=== PATIENT | male | born 1935 | race Caucasian/White ===

== ENCOUNTER 2016-08-26 20:29 | Inpatient (IN) | payer MEDICARE, BC ==
[~2016-08-26] VITALS: Ht 170.2 cm; Wt 94.5 kg
[~2016-08-26 20:29] MED LIST: AMLOPIDINE; ASPIR-LOW81 MG PO; ASPIRIN 81M81 MG/TA2 PO; CEFTIN 250250 MG/TAB PO; COLACE 100100 MG/CAP PO; DAILY MULTIPLE1 T19 PO; DEPOLUPRON; EFFIENT10 MG PO; FERRO-TIME325 MG PO; FISH OIL CONC1000 MG PO; FLAGYL500 MG PO; GLUCOSAMINE/CHONDROI PO; HALDOL .5M0.5 MG/TAB; HYDROCHLOR50 MG PO; HYDRODIURIL50 MG PO; HYGROTON25 MG PO; IRON TABLETS325 MG PO; KLOR-CON 1010 MEQ PO; KLOR-CON M1010 MEQ PO; LASIX 20MG TABL20 MG PO; LASIX 40MG TABL40 MG; LASIX 40MG TABL40 MG PO; LIPITOR 10MG10 MG PO; LIPITOR 80MG80 MG PO; LOPRESSOR 550 MG/TAB PO; MIRALAX PA17 GM/Dose PO; MULTI VITAMINS1 TAB PO; NEXIUM 40MG40 MG PO; NEXIUM40 MG PO; NITROSTAT0.4 MG/TAB SL; NORCO 325 MG-51 TAB PO; PACERONE200 MG; PLAVIX 75MG TAB75 MG PO; PRINIVIL40 MG PO; PROBIOTIC-MAJOR PO; TICLOPIDINE HC250 MG PO; TOPROL XL50 MG PO; TYLENOL 500MG500 MG PO; ULTRAM 50MG TAB50 MG PO; VANCOCIN H125 MG/CAP PO; VITAMIN D32000 I1 PO; VOLTAREN 75 DR75 MG PO; VYTORIN; ZANAFLEX CAPSULE4 MG PO; ZANTAC 300300 MG PO; ZEBETA 5MG5 MG PO; ZEBETA10 MG; ZESTRIL 5MG5 MG PO; [UNRECOGNIZED DRUG - OTHER]
[2016-08-26 20:44] LABS: BASO # 0.1 (0.0-0.2); BASO % 0.8 % (0.0-2.0); EOS # 0.6 (0.0-0.7); EOS % 8.8 % (0-4.0); GRAN # 3.6 (1.4-6.5); GRAN % 54.2 % (42.2-75.2); HEMATOCRIT 39.4 % (42.0-52.0); HEMOGLOBIN 12.8 g/dl (13.5-18.0); LYMPH # 1.6 (1.2-3.4); LYMPH % 23.9 % (20.0-51.0); MEAN CELL VOLUME 91 fl (80.0-100.0); MEAN CORPUSCULAR HEMOGLOBIN 30 pg (27.0-31.0); MEAN CORPUSCULAR HGB CONC 33 g/dl (33.0-37.0); MEAN PLATELET VOLUME 10.1 fl (7.4-10.4); MONO # 0.8 (0.1-0.6); PLATELET COUNT 219 K/mm3 (130-400); RED BLOOD COUNT 4.31 M/mm3 (4.20-5.60); REDCELL DISTRIBUTION WIDTH-CV 13.1 % (11.5-14.5); WHITE BLOOD COUNT 6.6 K/mm3 (4.8-10.8)
[2016-08-26 20:47] LABS: INR 1.1 (0.8-3.0); PROTHROMBIN TIME 11.9 SECONDS (9.7-12.8)
[2016-08-26 20:50] LABS: PARTIAL THROMBOPLASTIN TIME 31.3 SECONDS (26.0-37.0)
[2016-08-26 20:55] LABS: ADJUSTED CALCIUM 9.3 mg/dL (8.4-10.2); BILIRUBIN,TOTAL 0.6 mg/dL (0.0-1.0); CALCIUM 9.3 mg/dL (8.4-10.2); CREATININE, serum 1.24 mg/dL (0.66-1.25); POTASSIUM 4.4 mmol/L (3.4-5.0); TOTAL PROTEIN 7.5 gm/dL (6.4-8.2)
[2016-08-26 21:05] LABS: TROPONIN-I 0.012 ng/mL (0.000-0.034)
[2016-08-27] VITALS (319 sets, daily range): BP systolic 141–177; BP diastolic 50–90; PULSE 47–80; TEMP 97.1–98.6; O2SAT 86–100
[2016-08-27 05:51] LABS: CALCIUM 9.1 mg/dL (8.4-10.2); CREATININE, serum 1.21 mg/dL (0.66-1.25); HEMATOCRIT 37.1 % (42.0-52.0); HEMOGLOBIN 12.2 g/dl (13.5-18.0); MEAN CELL VOLUME 92 fl (80.0-100.0); MEAN CORPUSCULAR HEMOGLOBIN 30 pg (27.0-31.0); MEAN CORPUSCULAR HGB CONC 33 g/dl (33.0-37.0); MEAN PLATELET VOLUME 10.3 fl (7.4-10.4); PLATELET COUNT 182 K/mm3 (130-400); POTASSIUM 3.9 mmol/L (3.4-5.0); RED BLOOD COUNT 4.04 M/mm3 (4.20-5.60); REDCELL DISTRIBUTION WIDTH-CV 13.1 % (11.5-14.5)
[2016-08-27 06:01] LABS: TROPONIN-I 0.016 ng/mL (0.000-0.034)
[2016-08-27 06:20] LABS: THYROID STIMULATING HORMONE 2.46 uIU/mL (0.465-4.680)
[2016-08-28 04:04] VITALS: BP 115/61; PULSE 72; TEMP 98.6
[2016-08-28 07:25] LABS: CALCIUM 9.2 mg/dL (8.4-10.2); CREATININE, serum 1.17 mg/dL (0.66-1.25); POTASSIUM 3.9 mmol/L (3.4-5.0)
[2016-08-28 07:28] LABS: BASO % 0.5 % (0.0-2.0); EOS # 0.5 (0.0-0.7); EOS % 7.9 % (0-4.0); GRAN # 3.8 (1.4-6.5); GRAN % 60.8 % (42.2-75.2); HEMOGLOBIN 11.7 g/dl (13.5-18.0); LYMPH # 1.1 (1.2-3.4); LYMPH % 17.9 % (20.0-51.0); MEAN CELL VOLUME 92 fl (80.0-100.0); MEAN CORPUSCULAR HEMOGLOBIN 30 pg (27.0-31.0); MEAN CORPUSCULAR HGB CONC 33 g/dl (33.0-37.0); MEAN PLATELET VOLUME 10.5 fl (7.4-10.4); MONO # 0.8 (0.1-0.6); MONO % 12.4 % (1.7-9.3); PLATELET COUNT 208 K/mm3 (130-400); RED BLOOD COUNT 3.91 M/mm3 (4.20-5.60); REDCELL DISTRIBUTION WIDTH-CV 13.2 % (11.5-14.5); WHITE BLOOD COUNT 6.3 K/mm3 (4.8-10.8)
[2016-08-28 08:27] VITALS: BP 129/60; PULSE 75; TEMP 98.3
[2016-08-28] MEDS ORDERED: IMDUR 60MG60 MG/TAB PO (09:48)
[2016-08-28] MEDS ORDERED: ZESTRIL 10MG10 MG PO (09:49)
[2016-08-29] MEDS ORDERED: ARICEPT 5MG PO (09:48)
== END 2016-08-28 11:10 | disposition home or self-care (01) | DRG 313 ==
LOC: COL.ER 20:29 → ICU 22:00 → MEDICAL 08-27 14:25
PROVIDERS: Family Medicine; Internal Medicine
DX: R07.89 Other chest pain (principal); I44.2 Atrioventricular block, complete; M06.9 Rheumatoid arthritis, unspecified; E78.5 Hyperlipidemia, unspecified; K21.9 Gastro-esophageal reflux disease without esophagitis; I10 Essential (primary) hypertension; R00.1 Bradycardia, unspecified; D64.9 Anemia, unspecified; Z87.891 Personal history of nicotine dependence; Z95.1 Presence of aortocoronary bypass graft
CPT/HCPCS: 99232-AI; 99239; C9113; J1650

== ENCOUNTER → 2016-08-29 | Outpatient (CLI) | payer MEDICARE, BC ==
[~2016-08-29] VITALS: Ht 170.2 cm; Wt 97.1 kg
[~2016-08-29] MED LIST changes: +ARICEPT 5MG PO; +IMDUR 60MG60 MG/TAB PO; +ZESTRIL 10MG10 MG PO
[2016-08-29 09:37] VITALS: BP 163/81; PULSE 83
[2016-08-29 11:17] VITALS: BP 168/70; PULSE 81
[2016-08-29 11:18] VITALS: BP 148/74; PULSE 74
[2016-08-29 11:20] VITALS: BP 158/90; PULSE 107
[2016-08-29 11:21] VITALS: BP 174/94; PULSE 101
== END ==
LOC: COL.CARD 09:11
DX: R07.89 Other chest pain (principal); R94.39 Abnormal result of other cardiovascular function study
CPT/HCPCS: A9502; J2785

== ENCOUNTER → 2017-05-07 | Outpatient (CLI) | payer MEDICARE, BC | LOC: COL.RAD 15:50 | DX: M79.605 Pain in left leg (principal); R22.42 Localized swelling, mass and lump, left lower limb ==

== ENCOUNTER → 2018-08-06 | Outpatient (CLI) | payer MEDICARE, BC | LOC: COL.RAD 09:35 | DX: C61 Malignant neoplasm of prostate (principal); M51.36 Other intervertebral disc degeneration, lumbar region; M48.061 Spinal stenosis, lumbar region without neurogenic claudication; Z96.641 Presence of right artificial hip joint; I51.7 Cardiomegaly; R09.89 Other specified symptoms and signs involving the circulatory and respiratory systems | CPT/HCPCS: A9503; Q9967 ==

== ENCOUNTER 2019-02-08 12:59 | Emergency (ER) | payer MEDICARE, BC ==
[~2019-02-08] VITALS: Ht 165.1 cm; Wt 90.9 kg
[2019-02-08 13:04] VITALS: TEMP 97.9
[2019-02-08 13:35] LABS: BASO # 0.1 (0.0-0.2); BASO % 0.9 % (0.0-2.0); EOS # 0.3 (0.0-0.7); GRAN # 3.5 (1.4-6.5); GRAN % 65.3 % (42.2-75.2); HEMATOCRIT 39.5 % (42.0-52.0); HEMOGLOBIN 12.7 g/dl (13.5-18.0); LYMPH # 0.9 (1.2-3.4); LYMPH % 15.9 % (20.0-51.0); MEAN CELL VOLUME 95 fl (80.0-100.0); MEAN CORPUSCULAR HEMOGLOBIN 31 pg (27.0-31.0); MEAN CORPUSCULAR HGB CONC 32 g/dl (33.0-37.0); MONO # 0.6 (0.1-0.6); MONO % 11.2 % (1.7-9.3); PLATELET COUNT 181 K/mm3 (130-400); RED BLOOD COUNT 4.17 M/mm3 (4.20-5.60); REDCELL DISTRIBUTION WIDTH-CV 13.2 % (11.5-14.5)
[2019-02-08 13:40] LABS: ALBUMIN 3.7 gm/dL (3.5-5.0); BILIRUBIN,TOTAL 0.5 mg/dL (0.0-1.0); CALCIUM 8.9 mg/dL (8.4-10.2); CREATININE, serum 1.13 (0.66-1.25); MAGNESIUM 2.1 mg/dL (1.6-2.3); POTASSIUM 4.2 mmol/L (3.4-5.0); TOTAL PROTEIN 6.8 gm/dL (6.4-8.2)
[2019-02-08] MEDS ORDERED: ATIVAN 0.50.5 MG/TAB PO (14:46)
[2019-02-08 14:58] VITALS: BP 108/60; PULSE 64
== END 2019-02-08 15:25 | disposition home or self-care (01) ==
LOC: COL.ER 12:59
PROVIDERS: Emergency Medicine
DX: G51.39 Clonic hemifacial spasm, unspecified (principal); Z79.82 Long term (current) use of aspirin; Z79.02 Long term (current) use of antithrombotics/antiplatelets
CPT/HCPCS: J2060; J7040

== ENCOUNTER → 2021-03-07 | Outpatient (CLI) | payer MEDICARE, BC ==
[~2021-03-07] MED LIST changes: +ATIVAN 0.50.5 MG/TAB PO
== END ==
LOC: COL.RAD 09:19
DX: C61 Malignant neoplasm of prostate (principal); M48.061 Spinal stenosis, lumbar region without neurogenic claudication; M51.36 Other intervertebral disc degeneration, lumbar region; I51.7 Cardiomegaly; R09.89 Other specified symptoms and signs involving the circulatory and respiratory systems; Z96.641 Presence of right artificial hip joint
CPT/HCPCS: A9503; Q9967

== ENCOUNTER 2021-04-28 11:06 | Outpatient (RCR) | payer MEDICARE, BC | END 2021-07-27 | disposition home or self-care (01) | LOC: WSST | DX: R13.13 Dysphagia, pharyngeal phase (principal) ==

== ENCOUNTER → 2021-05-05 | Outpatient (CLI) | payer MEDICARE, BC | LOC: COL.RAD 14:43 | DX: R13.10 Dysphagia, unspecified (principal) ==

== ENCOUNTER 2021-12-07 05:22 | Observation (INO) | payer MEDICARE, BC ==
[~2021-12-07] VITALS: Ht 157.5 cm; Wt 97.7 kg
[2021-12-07 05:49] LABS: BASO % 0.3 % (0.0-2.0); EOS % 0.5 % (0.0-4.0); GRAN # 4.6 K/mm3 (1.4-6.5); GRAN % 76.2 % (42.2-75.2); HEMATOCRIT 38.8 % (42.0-52.0); LYMPH # 0.8 K/mm3 (1.2-3.4); LYMPH % 12.3 % (20.0-51.0); MEAN CELL VOLUME 95 fl (80.0-100.0); MEAN CORPUSCULAR HEMOGLOBIN 32 pg (27-31); MEAN CORPUSCULAR HGB CONC 34 g/dl (33.0-37.0); MEAN PLATELET VOLUME 10.9 fl (7.4-10.4); MONO # 0.6 K/mm3 (0.1-0.6); MONO % 9.7 % (1.7-9.3); PLATELET COUNT 175 K/mm3 (130-400); RED BLOOD COUNT 4.09 M/mm3 (4.20-5.60); REDCELL DISTRIBUTION WIDTH-CV 13.1 % (11.5-14.5)
[2021-12-07 06:14] LABS: ALBUMIN 3.9 gm/dL (3.4-4.8); CALCIUM 8.8 mg/dL (8.4-10.2); CREATININE, serum 1.31 mg/dL (0.72-1.25); POTASSIUM 4.5 mmol/L (3.5-4.5); TOTAL PROTEIN 6.1 gm/dL (6.2-8.1)
[2021-12-07 06:22] LABS: TROPONIN-I 0.086 ng/mL (0.00-0.033)
--- NOTE | 2021-12-07 12:30 | NUR ---
Zahra informed of patient's elevated troponin.
[2021-12-07] MEDS ORDERED: ZYTIGA500 MG PO (12:42)
[2021-12-07] MEDS ORDERED: PREDNISONE 5MG5 MG PO (12:44)
[2021-12-07 12:51] VITALS: BP 140/63; BP 140/70; PULSE 78; TEMP 97.5; TEMP 98.7
[2021-12-07 14:50] VITALS: BP 140/70; PULSE 78
--- NOTE | 2021-12-07 14:52 | NUR ---
Received report that patient is taking chemotherapy for prostate cancer. Patient taking Abiraterone (Zytiga) daily. Chemo precautions need to be followed for patient feces for 4 days following administration. Notified care team and place signage outside patient room.
[2021-12-07] MEDS ORDERED: PROTONIX 40MG T40 MG PO (15:06)
[2021-12-07] MEDS ORDERED: VITAMIN D 400400 IU (15:12)
[2021-12-07] MEDS ORDERED: CALCIUM (15:13)
[2021-12-07] MEDS ORDERED: ZANAFLEX CAPSULE2 MG PO (15:14)
[2021-12-07 15:56] VITALS: BP 147/70; PULSE 59; TEMP 98.1
--- NOTE | 2021-12-07 18:00 | NUR ---
Patient admitted from ED to room 311 for NSTEMI. Allergies, medications, and pharmacy reviewed. Admission paperwork completed. Patient on chemo percautions. Patient denies any pain, discomfort, SOA, or further needs at this time. Patient on RA. VSS. Patient A&O. Fall precautions in place.
[2021-12-07 20:48] VITALS: BP 149/63; PULSE 59; TEMP 98.1
[2021-12-08] VITALS (9 sets, daily range): BP systolic 124–197; BP diastolic 68–105; PULSE 20–95; TEMP 97.5–97.9
--- NOTE | 2021-12-08 05:14 | NUR ---
PATIENT RESTED QUIETLY IN BED THROUGHOUT THE NIGHT. PATIENT DENIED PAIN OR NAUSEA. PATIENT HAS BEEN NPO SINCE 0000. NO NEW ISSUES NOTED OR REPORTED BY PATIENT.
[2021-12-08 06:18] LABS: BASO % 0.5 % (0.0-2.0); EOS # 0.1 K/mm3 (0.0-0.7); EOS % 1.7 % (0.0-4.0); GRAN # 4.9 K/mm3 (1.4-6.5); GRAN % 75.5 % (42.2-75.2); HEMATOCRIT 38.7 % (42.0-52.0); HEMOGLOBIN 12.9 g/dl (13.5-18.0); LYMPH # 0.6 K/mm3 (1.2-3.4); LYMPH % 9.5 % (20.0-51.0); MEAN CELL VOLUME 95 fl (80.0-100.0); MEAN CORPUSCULAR HEMOGLOBIN 32 pg (27-31); MEAN CORPUSCULAR HGB CONC 33 g/dl (33.0-37.0); MEAN PLATELET VOLUME 11.2 fl (7.4-10.4); MONO # 0.8 K/mm3 (0.1-0.6); MONO % 11.7 % (1.7-9.3); PLATELET COUNT 177 K/mm3 (130-400); RED BLOOD COUNT 4.07 M/mm3 (4.20-5.60); REDCELL DISTRIBUTION WIDTH-CV 13.1 % (11.5-14.5)
[2021-12-08 06:45] LABS: ALBUMIN 3.3 gm/dL (3.4-4.8); CALCIUM 8.6 mg/dL (8.4-10.2); CREATININE, serum 1.26 mg/dL (0.72-1.25); MAGNESIUM 2.1 mg/dL (1.6-2.6); PHOSPHOROUS 2.7 mg/dL (2.3-4.7); POTASSIUM 4.1 mmol/L (3.5-4.5)
--- NOTE | 2021-12-08 07:57 | NUR ---
PATIENT RESTING COMFORTABLY IN BED ASLEEP. DID NOT DISTURB.
--- NOTE | 2021-12-08 09:24 | NUR ---
Initial visit; Patient preparing for test, House Registry Rn offered God's blessings and wished him well.
--- NOTE | 2021-12-08 09:41 | NUR ---
CORNELIO met with the patient's , Marina (ph#[phone]) and their daughter, Amy, to discuss discharge plan. The patient was out of the room for a test. The patient lives in [place] with his . Marina reports that the patient needs some assistance with getting in and out of the bath and that he has a walker. The patient's PCP is Dr. Ren Ortega and he receives his medications from [facility]. The patient does not have a DPOA-HC in EMR, but Marina states she believes the patient has one completed and that it designates her. Marina reports that the plan is for the patient to return back home with her upon discharge. CORNELIO discussed home health services. Marina and Amy report that they would be interested in getting home health services for the patient. SW provided them with Medicare.gov's list of home health agencies that serve [place]. Marina and Amy would like some time to look over the list. SW to continue to follow. *Discharge plan: home with and home health*
[2021-12-08] MEDS ORDERED: FLOMAX 0.40.4 MG/CAP PO (10:54)
[2021-12-08] MEDS ORDERED: PROZAC 20MG20 MG PO (10:55)
[2021-12-08] MEDS ORDERED: NAMENDA5 MG PO (10:55)
--- NOTE | 2021-12-08 12:15 | NUR ---
PT VOMITING, ZOFRAN ORDER OBTAINED FROM PAT BLUE, SUSPECTED THAT NORCO HAD ALSO BEEN VOMITED UP, CANNOT GIVE NORCO OTHERWISE EXCEEDING ACETAMINOPHEN 24HR LIMIT, PAT ALSO NOTIFIED OF THIS AND WILLIAM ORDERED AND GIVEN INSTEAD. PT TAKEN DOWN FOR LP.
[2021-12-08] MEDS ORDERED: PLAVIX 75MG TAB75 MG PO (13:07)
[2021-12-08] MEDS ORDERED: ASPIRIN 81M81 MG/TA2 PO (13:07)
[2021-12-08] MEDS ORDERED: NORVASC2.5 MG PO (13:08)
[2021-12-08] MEDS ORDERED: NITROSTAT0.4 MG/TAB SL (14:15)
--- NOTE | 2021-12-08 14:15 | NUR ---
The clinical team is ready to discharge the patient today. CORNELIO met with the patient, his , and daughter to follow up on home health preference. The patient's and daughter chose [facility]. CORNELIO contacted and faxed a referral to Nichol at [facility]. Nichol states that they are able to accept the patient. The patient is to discharge back home with his today, 12/08, with home health services for mcfp/PT/OT from [facility]. CORNELIO faxed orders to Nichol at [facility]. No additional needs at this time.
--- NOTE | 2021-12-08 14:56 | NUR ---
PT ESCORTED OUT VIA WHEELCHAIR. EDUCATED PT AND PT AND DAUGHTER ON DISCHARGE PAPERWORK, IV REMOVED, TELE REMOVED.
[2021-12-08] MEDS ORDERED: ZESTRIL 10MG10 MG PO (20:49)
== END 2021-12-08 14:50 | disposition home or self-care (01) ==
LOC: COL.ER 05:22 → MEDICAL 06:39
PROVIDERS: Personal Emergency Response Attendant; ADMIT Internal Medicine
DX: R07.89 Other chest pain (principal); R77.8 Other specified abnormalities of plasma proteins; I25.10 Atherosclerotic heart disease of native coronary artery without angina pectoris; I50.20 Unspecified systolic (congestive) heart failure; N18.9 Chronic kidney disease, unspecified; I12.9 Hypertensive chronic kidney disease with stage 1 through stage 4 chronic kidney disease, or unspecified chronic kidney disease; E78.5 Hyperlipidemia, unspecified; K21.9 Gastro-esophageal reflux disease without esophagitis; N40.0 Benign prostatic hyperplasia without lower urinary tract symptoms; M06.9 Rheumatoid arthritis, unspecified; C61 Malignant neoplasm of prostate; F32.A Depression, unspecified; F03.90 Unspecified dementia, unspecified severity, without behavioral disturbance, psychotic disturbance, mood disturbance, and anxiety; Z95.1 Presence of aortocoronary bypass graft; Z79.82 Long term (current) use of aspirin; Z79.899 Other long term (current) drug therapy; Z87.891 Personal history of nicotine dependence
CPT/HCPCS: 99239; A9500; G0378; J2785; J7512

== ENCOUNTER 2022-02-16 10:05 | Inpatient (IN) | payer MEDICARE, BC ==
[~2022-02-16] VITALS: Ht 170.2 cm; Wt 86.3 kg
[~2022-02-16 10:05] MED LIST changes: +CALCIUM; +FLOMAX 0.40.4 MG/CAP PO; +NAMENDA5 MG PO; +NORVASC2.5 MG PO; +PREDNISONE 5MG5 MG PO; +PROTONIX 40MG T40 MG PO; +PROZAC 20MG20 MG PO; +VITAMIN D 400400 IU; +ZANAFLEX CAPSULE2 MG PO; +ZYTIGA500 MG PO
[2022-02-16 11:35] LABS: BASO % 0.3 % (0.0-2.0); EOS # 0.2 K/mm3 (0.0-0.7); EOS % 2.9 % (0.0-4.0); GRAN # 4.6 K/mm3 (1.4-6.5); GRAN % 75.8 % (42.2-75.2); HEMOGLOBIN 11.8 g/dl (13.5-18.0); LYMPH # 0.5 K/mm3 (1.2-3.4); LYMPH % 7.4 % (20.0-51.0); MEAN CELL VOLUME 97 fl (80.0-100.0); MEAN CORPUSCULAR HEMOGLOBIN 32 pg (27-31); MEAN CORPUSCULAR HGB CONC 33 g/dl (33.0-37.0); MEAN PLATELET VOLUME 10.8 fl (7.4-10.4); MONO # 0.8 K/mm3 (0.1-0.6); MONO % 12.3 % (1.7-9.3); PLATELET COUNT 196 K/mm3 (130-400); REDCELL DISTRIBUTION WIDTH-CV 13.1 % (11.5-14.5)
[2022-02-16 11:39] LABS: HEMATOCRIT 35.9 % (42.0-52.0)
[2022-02-16 11:49] LABS: INR 1.1 (0.8-3.0); PROTHROMBIN TIME 12.9 SECONDS (9.7-12.8)
[2022-02-16 12:22] LABS: CALCIUM 9.5 mg/dL (8.4-10.2); CREATININE, serum 1.34 mg/dL (0.72-1.25); POTASSIUM 3.1 mmol/L (3.5-4.5); TOTAL PROTEIN 5.9 gm/dL (6.2-8.1)
[2022-02-16 12:31] LABS: TROPONIN-I 0.171 ng/mL (0.00-0.033)
[2022-02-16 20:15] VITALS: BP 170/78; PULSE 86; TEMP 98.2
[2022-02-16 23:55] VITALS: BP 158/60; PULSE 62; TEMP 97.8
[2022-02-17 04:00] VITALS: BP 140/88; PULSE 68; TEMP 98.1
[2022-02-17 06:18] LABS: BASO % 0.3 % (0.0-2.0); EOS % 0.5 % (0.0-4.0); GRAN # 4.9 K/mm3 (1.4-6.5); GRAN % 82.3 % (42.2-75.2); HEMOGLOBIN 10.9 g/dl (13.5-18.0); LYMPH # 0.4 K/mm3 (1.2-3.4); LYMPH % 6.1 % (20.0-51.0); MEAN CELL VOLUME 96 fl (80.0-100.0); MEAN CORPUSCULAR HEMOGLOBIN 32 pg (27-31); MEAN CORPUSCULAR HGB CONC 33 g/dl (33.0-37.0); MEAN PLATELET VOLUME 10.7 fl (7.4-10.4); MONO # 0.6 K/mm3 (0.1-0.6); PLATELET COUNT 192 K/mm3 (130-400); RED BLOOD COUNT 3.41 M/mm3 (4.20-5.60); REDCELL DISTRIBUTION WIDTH-CV 13.2 % (11.5-14.5)
[2022-02-17 06:34] LABS: HEMATOCRIT 32.6 % (42.0-52.0)
[2022-02-17 06:45] LABS: CALCIUM 8.9 mg/dL (8.4-10.2); CREATININE, serum 1.04 mg/dL (0.72-1.25); MAGNESIUM 1.9 mg/dL (1.6-2.6); POTASSIUM 3.5 mmol/L (3.5-4.5)
[2022-02-17 08:22] VITALS: BP 140/70; PULSE 70; TEMP 97.8
[2022-02-17 14:18] VITALS: BP 135/80; PULSE 62
[2022-02-17 17:00] VITALS: BP 157/80
[2022-02-17 20:17] VITALS: BP 142/78; PULSE 85; TEMP 97.8
[2022-02-18 00:28] VITALS: BP 150/74; PULSE 77; TEMP 97.8
[2022-02-18 12:00] VITALS: BP 180/100; PULSE 101; TEMP 99.5
[2022-02-18 13:56] VITALS: BP 150/95
[2022-02-18 16:00] VITALS: BP 150/95; PULSE 97; TEMP 98.3
[2022-02-18 20:39] VITALS: BP 139/76; PULSE 86; TEMP 98.3
[2022-02-18 23:27] VITALS: BP 140/86; PULSE 90; TEMP 98.2
[2022-02-19] VITALS (7 sets, daily range): BP systolic 93–155; BP diastolic 60–88; PULSE 82–108; TEMP 97.8–99
[2022-02-19 06:18] LABS: BASO % 0.9 % (0.0-2.0); EOS # 0.2 K/mm3 (0.0-0.7); EOS % 3.7 % (0.0-4.0); GRAN # 3.1 K/mm3 (1.4-6.5); GRAN % 67.8 % (42.2-75.2); HEMOGLOBIN 11.2 g/dl (13.5-18.0); LYMPH # 0.4 K/mm3 (1.2-3.4); LYMPH % 9.3 % (20.0-51.0); MEAN CELL VOLUME 96 fl (80.0-100.0); MEAN CORPUSCULAR HEMOGLOBIN 31 pg (27-31); MEAN CORPUSCULAR HGB CONC 33 g/dl (33.0-37.0); MEAN PLATELET VOLUME 10.5 fl (7.4-10.4); MONO # 0.8 K/mm3 (0.1-0.6); PLATELET COUNT 173 K/mm3 (130-400); RED BLOOD COUNT 3.59 M/mm3 (4.20-5.60); REDCELL DISTRIBUTION WIDTH-CV 13.1 % (11.5-14.5)
[2022-02-19 06:19] LABS: HEMATOCRIT 34.3 % (42.0-52.0)
[2022-02-19 06:20] LABS: CALCIUM 8.5 mg/dL (8.4-10.2); CREATININE, serum 0.93 mg/dL (0.72-1.25); MAGNESIUM 1.6 mg/dL (1.6-2.6); POTASSIUM 3.7 mmol/L (3.5-4.5)
[2022-02-20 03:25] VITALS: BP 138/88; PULSE 76; TEMP 97.9
[2022-02-20 07:15] VITALS: BP 139/88; PULSE 75; TEMP 98.5
[2022-02-20 11:56] VITALS: PULSE 78; TEMP 98.4
[2022-02-20 17:19] VITALS: BP 148/88; PULSE 88; TEMP 98.8
[2022-02-20 20:51] VITALS: BP 142/72; PULSE 81; TEMP 98.4
[2022-02-21 00:11] VITALS: BP 148/62; PULSE 87; TEMP 97.5
[2022-02-21 04:32] VITALS: BP 126/80; PULSE 77; TEMP 97.6
[2022-02-21 07:52] VITALS: BP 130/80; PULSE 85; TEMP 98.1
[2022-02-21 07:54] LABS: BASO % 0.5 % (0.0-2.0); EOS # 0.2 K/mm3 (0.0-0.7); EOS % 4.5 % (0.0-4.0); GRAN # 2.9 K/mm3 (1.4-6.5); GRAN % 67.9 % (42.2-75.2); LYMPH # 0.6 K/mm3 (1.2-3.4); LYMPH % 13.2 % (20.0-51.0); MEAN CELL VOLUME 99 fl (80.0-100.0); MEAN CORPUSCULAR HEMOGLOBIN 31 pg (27-31); MEAN CORPUSCULAR HGB CONC 32 g/dl (33.0-37.0); MEAN PLATELET VOLUME 10.6 fl (7.4-10.4); MONO # 0.5 K/mm3 (0.1-0.6); MONO % 12.5 % (1.7-9.3); PLATELET COUNT 174 K/mm3 (130-400); RED BLOOD COUNT 3.83 M/mm3 (4.20-5.60); REDCELL DISTRIBUTION WIDTH-CV 13.1 % (11.5-14.5)
[2022-02-21 08:15] LABS: ALBUMIN 2.6 gm/dL (3.4-4.8); BILIRUBIN,TOTAL 0.5 mg/dL (0.2-1.2); CALCIUM 8.5 mg/dL (8.4-10.2); CREATININE, serum 1.03 mg/dL (0.72-1.25); MAGNESIUM 1.7 mg/dL (1.6-2.6); POTASSIUM 3.3 mmol/L (3.5-4.5); TOTAL PROTEIN 5.3 gm/dL (6.2-8.1)
[2022-02-21 12:37] VITALS: BP 140/90; PULSE 84; TEMP 98.2
[2022-02-21 17:21] VITALS: BP 138/76; PULSE 85; TEMP 97.8
[2022-02-21 20:19] VITALS: BP 126/78; PULSE 79; TEMP 97.7
[2022-02-22 00:35] VITALS: BP 142/68; PULSE 69; TEMP 97.5
[2022-02-22 04:23] VITALS: BP 136/76; PULSE 78; TEMP 97.7
[2022-02-22 07:44] VITALS: BP 138/72; PULSE 69; TEMP 98.3
[2022-02-22] MEDS ORDERED: ROXANOL 20MG20 MG/ML PO (09:17)
[2022-02-22] MEDS ORDERED: ATIVAN 0.50.5 MG/TAB PO (09:18)
[2022-02-22] MEDS ORDERED: SEROQUEL 2525 MG/TAB PO (09:18)
[2022-02-22] MEDS ORDERED: ASPIRIN 81M81 MG/TA2 PO (09:21)
[2022-02-22] MEDS ORDERED: PLAVIX 75MG TAB75 MG PO (09:21)
== END 2022-02-22 10:48 | disposition hospice, home (50) | DRG 640 ==
LOC: COL.ER 10:05 → MEDICAL 14:56
PROVIDERS: Internal Medicine; Physician Assistant; ADMIT Internal Medicine
DX: E87.6 Hypokalemia (principal); E43 Unspecified severe protein-calorie malnutrition; G93.41 Metabolic encephalopathy; I13.0 Hypertensive heart and chronic kidney disease with heart failure and stage 1 through stage 4 chronic kidney disease, or unspecified chronic kidney disease; I50.22 Chronic systolic (congestive) heart failure; C79.51 Secondary malignant neoplasm of bone; I25.10 Atherosclerotic heart disease of native coronary artery without angina pectoris; F03.90 Unspecified dementia, unspecified severity, without behavioral disturbance, psychotic disturbance, mood disturbance, and anxiety; C61 Malignant neoplasm of prostate; K21.9 Gastro-esophageal reflux disease without esophagitis; F32.A Depression, unspecified; E78.5 Hyperlipidemia, unspecified; I48.91 Unspecified atrial fibrillation; M06.9 Rheumatoid arthritis, unspecified; N40.0 Benign prostatic hyperplasia without lower urinary tract symptoms; I49.9 Cardiac arrhythmia, unspecified; N18.30 Chronic kidney disease, stage 3 unspecified; Z95.5 Presence of coronary angioplasty implant and graft; I25.2 Old myocardial infarction; Z51.5 Encounter for palliative care; Z92.21 Personal history of antineoplastic chemotherapy; Z95.1 Presence of aortocoronary bypass graft; Z79.82 Long term (current) use of aspirin; Z92.3 Personal history of irradiation; Z68.29 Body mass index [BMI] 29.0-29.9, adult; Z23 Encounter for immunization
CPT/HCPCS: 99232-AI; 99239; J1650; J2060; J2270; J7030; J7512; Q9967